=== PATIENT | male | born 1965 | race Caucasian/White ===

== ENCOUNTER 2018-05-31 13:41 | Emergency (ER) | payer OTHER ==
[2018-05-31 13:51] VITALS: BP 155/108
[2018-05-31] MEDS ORDERED: Rabies Immune Globulin 10 ML* 150 UNIT/ML VIAL IM ONE ×2 (13:58→14:26)
[2018-05-31] MEDS ORDERED: Rabies VIRUS VACCINE (Imovax)* 2.5 UNIT/ML 1 ML IM ONE (13:58)
[2018-05-31] MEDS ORDERED: Tetan/Diph/Pertus SYR(Tdap)* 0.5 ML SYR(BOOSTRIX) use SYR IM ONE (14:00)
--- NOTE | 2018-05-31 14:03 | UC ---
Bite Injury/Animal HPI - HPI Summary HPI Summary: 53 yo male presents for rabies injections. He tells me that early this morning he woke up and found a bat in his bedroom. He picked the bat up and flushed it down the toilet - in the process he thinks the bat bit him in the RIGHT index finger. The health department was contacted and pt was advised to undergo the rabies vaccination series. Unsure when last tetanus was. - History of Current Complaint Chief Complaint: UCBiteInjury Stated Complaint: BAT BITE Time Seen by Provider: 05/31/18 13:58 Hx Obtained From: Patient Severity Currently: None Pain Intensity: 0 Onset/Duration: Sudden Onset Type of Bite: Wild Animal Has Animal Been Immunized?: No Character: Puncture - Allergies/Home Medications Allergies/Adverse Reactions: Allergies Allergy/AdvReac Type Severity Reaction Status Date / Time No Known Allergies Allergy Verified 05/31/18 13:51 Home Medications: Home Medications NK [No Home Medications Reported] 05/31/18 [History Confirmed 05/31/18] PMH/Surg Hx/FS Hx/Imm Hx - Additional Past Medical History Additional PMH: None Previously Healthy: Yes - Surgical History Surgical History: None - Family History Known Family History: Positive: Cardiac Disease - Social History Occupation: Employed Full-time Lives: With Family Alcohol Use: None Substance Use Type: None Smoking Status (MU): Never Smoked Tobacco - Immunization History Most Recent Influenza Vaccination: NOT THIS YEAR Most Recent Tetanus Shot: NOT UP TO DATE -- > 10 YEARS Review of Systems Constitutional: Negative Skin: Other - Bat bite to right index finger Respiratory: Negative Cardiovascular: Negative Neurovascular: Negative Musculoskeletal: Negative Neurological: Negative Psychological: Negative All Other Systems Reviewed And Are Negative: Yes Physical Exam - Summary Physical Exam Summary: GENERAL: NAD. WDWN. No pain distress. SKIN: No visible puncture wound or open open to the right index finger at site of bat bite. No streaking, bleeding, or drainage. NECK: Supple. Nontender. No lymphadenopathy. CHEST: No accessory muscle use. Breathing comfortably and in no distress. CV: Pulses intact NEURO: Alert. CN II-XII grossly intact. PSYCH: Age appropriate behavior. Triage Information Reviewed: Yes Vital Signs: Initial Vital Signs Temp 96 F 05/31/18 13:47 Pulse 110 05/31/18 13:47 Resp 20 07/16/18 13:47 BP 155/108 05/31/18 13:47 Pulse Ox 100 05/31/18 13:47 Bite Injury Course/Dx - Course Course Of Treatment: Pt was given 1mL of RIG into the right index finger and the remaining 16mL elsewhere. Rabies vaccine and tdap were also given. - Differential Dx/Diagnosis Provider Diagnoses: Bat bite to right index finger Discharge - Sign-Out/Discharge Documenting (check all that apply): Patient Departure - Discharge Plan Condition: Stable Disposition: HOME Patient Education Materials: Rabies Immune Globulin (By injection), Rabies (ED) , Rabies Vaccine (ED) Referrals: No Primary Care Phys,NOPCP [Primary Care Provider] - Additional Instructions: If you develop a fever, shortness of breath, chest pain, new or worsening symptoms - please call your PCP or go to the ED. Your blood pressure was high at todays visit. Please see your primary provider within 4 weeks for recheck and re-evaluation. Please do not sheepskin pickler bats or other unknown animals - please call animal control - Billing Disposition and Condition Condition: STABLE Disposition: Home
[2018-05-31] MEDS ORDERED: Rabies Immune Globulin 2 ML* 150 UNITS/ML VIAL IM ONE ×2 (14:26→15:03)
== END 2018-05-31 15:05 | disposition home or self-care (01) ==
LOC: UCEAST 13:41
DX: S69.91XA Unspecified injury of right wrist, hand and finger(s), initial encounter (principal); W61.91XA Bitten by other birds, initial encounter; Y93.9 Activity, unspecified; Y92.003 Bedroom of unspecified non-institutional (private) residence as the place of occurrence of the external cause; Z02.3 Encounter for examination for recruitment to armed forces; Z82.49 Family history of ischemic heart disease and other diseases of the circulatory system
CPT/HCPCS: 90375; 90471; 90472; 90715; 96372; 99211; G0463

== ENCOUNTER 2019-05-24 16:48 | Emergency (ER) | payer OTHER ==
[2019-05-24 17:00] VITALS: BP 125/80
--- NOTE | 2019-05-24 18:12 | UC ---
Lower Extremity/Ankle HPI - HPI Summary HPI Summary: 54 y/o male presents to the urgent care c/o Left calf injury waking downstairs- felt like something snapped yesterday. - History of Current Complaint Chief Complaint: UCLowerExtremity Stated Complaint: LEFT CALF PAIN Time Seen by Provider: 05/24/19 18:09 Onset/Duration: Sudden Onset Pain Intensity: 5 - Allergies/Home Medications Allergies/Adverse Reactions: Allergies Allergy/AdvReac Type Severity Reaction Status Date / Time No Known Allergies Allergy Verified 05/24/19 17:00 Home Medications: Home Medications metFORMIN* [Glucophage 500 MG TAB *] 500 mg PO QID 05/24/19 [History Confirmed 05/24/19] PMH/Surg Hx/FS Hx/Imm Hx - Surgical History Surgical History: None - Family History Known Family History: Positive: Cardiac Disease - Social History Alcohol Use: None Substance Use Type: None Smoking Status (MU): Never Smoked Tobacco - Immunization History Most Recent Influenza Vaccination: NOT THIS YEAR Most Recent Tetanus Shot: NOT UP TO DATE -- > 10 YEARS Physical Exam Vital Signs: Initial Vital Signs Temp 98.8 F 05/24/19 16:56 Pulse 75 05/24/19 16:56 Resp 12 05/24/19 16:56 BP 125/80 05/24/19 16:56 Pulse Ox 98 05/24/19 16:56 Lower Extremity Course/Dx - Course Course Of Treatment: IMPRESSION: No evidence of DVT in the left leg. - Differential Dx/Diagnosis Differential Diagnosis/HQI/PQRI: Contusion, DVT, Fracture (Closed), Sprain, Strain, Tendonitis, Other - muscel strain or tear Provider Diagnosis: Muscle strain of left lower leg, Left leg pain Discharge - Sign-Out/Discharge Documenting (check all that apply): Patient Departure - d/c home All imaging exams completed and their final reports reviewed: Yes - Discharge Plan Condition: Stable Disposition: HOME Patient Education Materials: Muscle Strain (ED) Referrals: Bk Love MD [Primary Care Provider] - 1 Week [facility] [Provider Group] - 3 Days Additional Instructions: 1-Please continue takin Ibuprofen PO 800mg q6-8hrs prn as directed to alleviate pain and swelling. 2-Please apply ice, keep your left leg immobilized with the ANDIE bandage. Since you declined crutches, please avoid strenuous exercised or standing for long periods o time or going up stair a lot. 3- Please f/u with Orthopedic from [facility] or your PCP in 3 days for further evaluation and treatment on your lower leg muscle strain. . - Billing Disposition and Condition Condition: STABLE Disposition: Home
[2019-05-24] MEDS ORDERED: Ibuprofen TAB* 400 MG PO ONE (18:44)
== END 2019-05-24 19:54 | disposition home or self-care (01) ==
LOC: UCEAST 16:48
DX: S86.912A Strain of unspecified muscle(s) and tendon(s) at lower leg level, left leg, initial encounter (principal); M79.605 Pain in left leg; W22.8XXA Striking against or struck by other objects, initial encounter; Y92.9 Unspecified place or not applicable
CPT/HCPCS: 99212; A9270-GY; G0463